=== PATIENT | male | born 1990 | race Two or more races ===

== ENCOUNTER 2021-05-06 21:13 | Emergency (ER) | payer SELFPAY ==
[~2021-05-06] VITALS: Ht 170.2 cm; Wt 63.5 kg
[2021-05-07 03:35] VITALS: BP 116/84
== END 2021-05-07 01:34 | disposition home or self-care (01) ==
LOC: EDBD 21:13 → ER 21:15
DX: F41.9 Anxiety disorder, unspecified (principal); F17.210 Nicotine dependence, cigarettes, uncomplicated

== ENCOUNTER 2021-06-27 17:58 | Emergency (ER) | payer SELFPAY ==
[~2021-06-27] VITALS: Ht 167.6 cm; Wt 77.1 kg
[2021-06-27 19:18] VITALS: BP 126/93
[2021-06-27] MEDS ORDERED: KETOROLAC TROMETH 60MG/2ML VIAL IM ONE (20:00)
== END 2021-06-27 20:32 | disposition home or self-care (01) ==
LOC: ER 17:58
DX: K08.89 Other specified disorders of teeth and supporting structures (principal); K03.81 Cracked tooth; K04.7 Periapical abscess without sinus; F17.210 Nicotine dependence, cigarettes, uncomplicated
CPT/HCPCS: 96372; 99283; J1885